=== PATIENT | male | born 1995 | race Caucasian/White ===

== ENCOUNTER 2016-12-05 18:45 | Emergency (ER) | payer OTHER ==
--- NOTE | 2016-12-05 21:02 | ED CLINICAL REPORT ---
Clinical Report - Physicians/Mid Levels [facility] [address] [place] [address] 12/05/2016 18:45 Patient: JESSE LAMB Time Seen: 20:02 Dec 05 2016. Arrived- By private vehicle. Historian- patient. HISTORY OF PRESENT ILLNESS Chief Complaint: BACK PAIN. It is described as being in the area of the lower lumbar spine. Onset was just prior to arrival and it is still present. No bladder dysfunction or sensory loss. Additional history - Reports recent [facility] save for about 14 days. Reports bending over today and having pain. Denies any radiation of pain. Denies any saddle anesthesia. Reports history of similar. Denies taking any medications prior to arrival. Denies any fall or trauma. Denies any abdominal pain, urinary symptoms. Denies any shortness of breath. REVIEW OF SYSTEMS No fever, difficulty with urination, nausea or vomiting. All systems otherwise negative, except as recorded above. PAST HISTORY Problems: Prior Injury, Same Area. Back Pain. Hypoglycemia. Additional Surgeries: no known surgeries. Medications: TraZODone HCl Oral. Allergies: No Known Drug Allergy. SOCIAL HISTORY Smoker- current status unknown. No alcohol use. ADDITIONAL NOTES The nursing notes have been reviewed. PHYSICAL EXAM Vital Signs: 12/05/2016 19:18 BP: 121/82. HR: 86. RR: 16. O2 saturation: 99%. Temp: 98 F. Pain level now: 06/06. Appearance: Alert. Neck: Normal inspection. Neck nontender. CVS: Heart sounds normal. Respiratory: Breath sounds normal. Abdomen: No visible injury. Bowel sounds normal. No distention, mass present, organomegaly or femoral pulse deficit. Back: (spasms on b/l lumbar region no midline tenderness.). Neuro: Oriented X 3. Mood/affect normal. Straight leg raising: negative on the right. PROGRESS AND PROCEDURES Course of Care: There are no risks for spinal epidural abscess or hematoma as patient is without any risk factors such as IVDA or evidence of active infection, no midline tenderness to percussion. Hence I do not feel emergent imaging with an MRI is indicated. However I did discuss with the patient that if these symptoms develop, or if the pain does not resolve an MRI may need to be done outpatient, or in the ED if symptoms worsen acutely or new onset of the above mentioned symptoms develop. 12/05/2016 20:25 BP: 122/70. HR: 68. RR: 16. O2 saturation: 100%. Patient is stable. Physical exam findings are improved. Symptoms better. Patient/family counseled. Disposition: Discharged. Condition: good. CLINICAL IMPRESSION Acute myofascial strain Sprain of the lumbar spine. INSTRUCTIONS Apply ice. No lifting greater than 5 lbs (5 days). Do not work tomorrow. Prescription Medications: Hydrocodone/APAP 5mg / 325mg: take 1 orally every 6 hours as needed for pain. Dispense ten (10). No refill. Robaxin 750 mg: take 1 orally every 8 hours for 3 days. Dispense ten (10). No refill. Substitution is permissible. Follow-up: Follow up with your doctor in three days. (Electronically signed by Deneen Levy P.A.-C 12/05/2016 23:08)
--- NOTE | 2016-12-05 21:02 | ED ORDER SUMMARY ---
..... Patient: JESSE LAMB LW OrderSheet [facility] VisitID: [id number] [address] [place] [address] 21y, M Registration Date/Time: 12/05/2016 ORDER SHEET Weight: 90.2 kg (stated) Allergies: No Known Drug Allergy GENERAL ORDERS: MEDICATION ORDERS: Valium PO 5 mg (HIGH ALERT MEDICATION, NOW) (19:42 12/05/2016 EKoroleva P.A.-C) (Ack 19:44 EInderbitzen R.N.) (19:48 EInderbitzen R.N.) Hydrocodone-APAP PO 5/325 mg (NOW, HIGH ALERT MEDICATION) (19:42 12/05/2016 EKoroleva P.A.-C) (Ack 19:44 EInderbitzen R.N.) (19:48 EInderbitzen R.N.) Motrin PO 600 mg (NOW) (19:42 12/05/2016 EKoroleva P.A.-C) (Ack 19:44 EInderbitzen R.N.) (19:48 EInderbitzen R.N.) Valium PO 5 mg (HIGH ALERT MEDICATION, NOW) (20:45 12/05/2016 EKoroleva P.A.-C) (Ack 20:53 EInderbitzen R.N.) (Cancelled: Patient [id number] EInderbitzen R.N.) IV FLUIDS: ORDER SHEET NOTES: [Electronically signed by Balbina Warner R.N. (21:12 12/05/2016)] [Electronically signed by Deneen LevyAEthan-C (23:07 12/05/2016)] [Electronically locked/signed by Balbina Warner R.N. (21:12 12/05/2016)]
--- NOTE | 2016-12-05 21:02 | ED ORDER SUMMARY ---
..... Patient: JESSE LAMB LW OrderSheet [facility] VisitID: [id number] [address] [place] [address] 21y, M Registration Date/Time: 12/05/2016 ORDER SHEET Weight: 90.2 kg (stated) Allergies: No Known Drug Allergy GENERAL ORDERS: MEDICATION ORDERS: Valium PO 5 mg (HIGH ALERT MEDICATION, NOW) (19:42 12/05/2016 EKoroleva P.A.-C) (Ack 19:44 EInderbitzen R.N.) (19:48 EInderbitzen R.N.) Hydrocodone-APAP PO 5/325 mg (NOW, HIGH ALERT MEDICATION) (19:42 12/05/2016 EKoroleva P.A.-C) (Ack 19:44 EInderbitzen R.N.) (19:48 EInderbitzen R.N.) Motrin PO 600 mg (NOW) (19:42 12/05/2016 EKoroleva P.A.-C) (Ack 19:44 EInderbitzen R.N.) (19:48 EInderbitzen R.N.) Valium PO 5 mg (HIGH ALERT MEDICATION, NOW) (20:45 12/05/2016 EKoroleva P.A.-C) (Ack 20:53 EInderbitzen R.N.) (Cancelled: Patient [id number] EInderbitzen R.N.) IV FLUIDS: ORDER SHEET NOTES: [Electronically signed by Balbina Warner R.N. (21:12 12/05/2016)] [Electronically signed by Deneen LevyAEthan-C (23:07 12/05/2016)] [Electronically locked/signed by Balbina Warner R.N. (21:12 12/05/2016)]
--- NOTE | 2016-12-05 21:02 | ED CLINICAL REPORT ---
Clinical Report - Physicians/Mid Levels [facility] [address] [place] [address] 12/05/2016 18:45 Patient: JESSE LAMB Time Seen: 20:02 Dec 05 2016. Arrived- By private vehicle. Historian- patient. HISTORY OF PRESENT ILLNESS Chief Complaint: BACK PAIN. It is described as being in the area of the lower lumbar spine. Onset was just prior to arrival and it is still present. No bladder dysfunction or sensory loss. Additional history - Reports recent prison save for about 14 days. Reports bending over today and having pain. Denies any radiation of pain. Denies any saddle anesthesia. Reports history of similar. Denies taking any medications prior to arrival. Denies any fall or trauma. Denies any abdominal pain, urinary symptoms. Denies any shortness of breath. REVIEW OF SYSTEMS No fever, difficulty with urination, nausea or vomiting. All systems otherwise negative, except as recorded above. PAST HISTORY Problems: Prior Injury, Same Area. Back Pain. Hypoglycemia. Additional Surgeries: no known surgeries. Medications: TraZODone HCl Oral. Allergies: No Known Drug Allergy. SOCIAL HISTORY Smoker- current status unknown. No alcohol use. ADDITIONAL NOTES The nursing notes have been reviewed. PHYSICAL EXAM Vital Signs: 12/05/2016 19:18 BP: 121/82. HR: 86. RR: 16. O2 saturation: 99%. Temp: 98 F. Pain level now: 06/06. Appearance: Alert. Neck: Normal inspection. Neck nontender. CVS: Heart sounds normal. Respiratory: Breath sounds normal. Abdomen: No visible injury. Bowel sounds normal. No distention, mass present, organomegaly or femoral pulse deficit. Back: (spasms on b/l lumbar region no midline tenderness.). Neuro: Oriented X 3. Mood/affect normal. Straight leg raising: negative on the right. PROGRESS AND PROCEDURES Course of Care: There are no risks for spinal epidural abscess or hematoma as patient is without any risk factors such as IVDA or evidence of active infection, no midline tenderness to percussion. Hence I do not feel emergent imaging with an MRI is indicated. However I did discuss with the patient that if these symptoms develop, or if the pain does not resolve an MRI may need to be done outpatient, or in the ED if symptoms worsen acutely or new onset of the above mentioned symptoms develop. 12/05/2016 20:25 BP: 122/70. HR: 68. RR: 16. O2 saturation: 100%. Patient is stable. Physical exam findings are improved. Symptoms better. Patient/family counseled. Disposition: Discharged. Condition: good. CLINICAL IMPRESSION Acute myofascial strain Sprain of the lumbar spine. INSTRUCTIONS Apply ice. No lifting greater than 5 lbs (5 days). Do not work tomorrow. Prescription Medications: Hydrocodone/APAP 5mg / 325mg: take 1 orally every 6 hours as needed for pain. Dispense ten (10). No refill. Robaxin 750 mg: take 1 orally every 8 hours for 3 days. Dispense ten (10). No refill. Substitution is permissible. Follow-up: Follow up with your doctor in three days. (Electronically signed by Deneen Levy P.A.-C 12/05/2016 23:08)
--- NOTE | 2016-12-05 21:02 | ED NURSING NOTES ---
Clinical Report - Nurses [facility] [address] [place] [address] 12/05/2016 18:45 Patient: JESSE LAMB TRIAGE Triage time 19:Dec 05 2016. Acuity: LEVEL 4. Chief Complaint: BACK PAIN. 19:18 12/05/16. SEPSIS SCREEN: Sepsis Screen. Negative (no infection suspected/documented). ZAIDA COMA SCORE: [place] Coma Scale: 15- eyes open spontaneously (4); best verbal response- oriented x 4 (5); best motor response- obeys commands (6). --19:21 Balbina Warner R.N. 19:18 12/05/16. BP: 121/82. HR: 86. RR: 16. O2 saturation: 99%. Temp: 98 F. Pain level now: 06/06. --19:21 Balbina Warner R.N. Weight: 90.2 kg stated. Height/Length: 74 inches Per Patient. BMI: 25.5. --19:18 Balbina Warner R.N. Medications TraZODone HCl Oral. --19:20 Balbina Warner R.N. Allergies No Known Drug Allergy. --19:20 Balbina Warner R.N. Medication/allergy information source: the patient. --19:21 Balbina Warner R.N. History Arrived by private vehicle. Historian: patient. Accompanied by family. Onset. (10 days ago). ( Patient states he was in intermediate for the last 10 days and had to sleep on a very thin matress that was on a concrete floor. Has had pain in low thoracic area. No neuro deficits noted. Pain with walking). No history of recent trauma. No numbness, weakness or tingling. 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 (400 mg 2 hours ago). SOCIAL HX: Heavy tobacco smoker (cigarette)- 1 pack per day. No alcohol use or drug use. No infectious disease exposure. ABUSE ASSESSMENT: No report of abuse. NUTRITIONAL RISK ASSESSMENT: The nutritional risk assessment revealed no deficiencies. FUNCTIONAL ASSESSMENT: Functional assessment: no impairments noted. LEARNING NEEDS ASSESSMENT: The learning needs assessment revealed no barriers. SKIN INTEGRITY ASSESSMENT: Skin integrity risk assessment completed. No skin integrity risk identified. --19:21 Balbina Warner R.N. PROBLEMS: Myofascial Strain. Back Pain. --19:20 Balbina Warner R.N. ADDITIONAL SURGERIES: no known surgeries. Interventions ID band on patient. --19:21 Balbina Warner R.N. PHYSICAL ASSESSMENT 19:12/05/16. GENERAL / NEURO / PSYCH: Alert. Oriented X 4. Appears in no acute distress. RESPIRATORY: Breath sounds within normal limits. CVS: Capillary refill less than 2 seconds. EXTREMITIES: Sensation intact in extremities. ROM of extremities within normal limits. BACK: Normal inspection of the neck and back. Soft tissue tenderness. --19:22 Balbina Warner R.N. NURSING PROGRESS NOTES 19:12/05/16. The initial plan of care for this patient includes an assessment with efforts to address the presence of pain; impairment of the musculoskeletal system. This plan of care was discussed with the patient. Reassurance given. Two patient identifiers checked. Bed placed in lowest position. Brakes of bed on. Patient ready for evaluation. --19:22 Balbina Warner R.N. 19:46 12/05/2016 Valium (Diazepam) PO Tablets 5 mg given. Allergies verified, confirmed 5 rights and sedative warning given to the patient. --19:48 Balbina Warner R.N. 19:46 12/05/2016 Hydrocodone-APAP (Hydrocodone-Acetaminophen) PO 5/325 mg Tablets 1 tab given. Allergies verified, confirmed 5 rights and sedative warning given to the patient. --19:48 Balbina Warner R.N. 19:46 12/05/2016 Motrin PO Tablets 600 mg given. Allergies verified and confirmed 5 rights. --19:48 Balbina Warner R.N. 20:25 12/05/16. Reassessment after medication administered. He is calm and resting quietly and has had no adverse reaction. Overall patient status is improved- he states feels better. --20:25 Balbina Warner R.N. 20:25 12/05/16. BP: 122/70. HR: 68. RR: 16. O2 saturation: 100%. Pain level now 03/06. --20:25 Balbina Warner R.N. 21:01 12/05/16. ( Patient was able to walk with a walker.). --21:01 Balbina Warner R.N. DISPOSITION / DISCHARGE 21:12 12/05/16. Condition at departure: improved and stable. The goals identified in the patient's plan of care were met. No learning barriers present. Reviewed medication(s) side effects, precautions, dosing and course information. Prescription(s) given to the patient. Patient verbalized understanding. Written instructions provided in Portuguese. The patient was discharged home and accompanied by spouse. He left the Emergency Department in a wheelchair and via private vehicle. Spouse driving. --21:12 Balbina Warner R.N. 20:25 12/05/16. BP: 122/70. HR: 68. RR: 16. O2 saturation: 100%. Pain level now 03/06. 19:18 12/05/16. BP: 121/82. HR: 86. RR: 16. O2 saturation: 99%. Temp: 98 F. Pain level now: 06/06. --21:12 Balbina Warner R.N. Departure time: 21:12 Dec 05 2016. --21:12 Balbina Warner R.N. Locked/Released at 12/05/2016 21:12 by Balbina Warner R.N.
--- NOTE | 2016-12-05 23:08 | ED DISCHARGE INSTRUCTIONS ---
Patient: JESSE LAMB LW General Instructions [facility] VisitID: [id number] [address] [place] [address] 21y, M Registration Date/Time: 12/05/2016 Acute myofascial strain Sprain of the lumbar spine. INSTRUCTIONS Apply ice. No lifting greater than 5 lbs (5 days). Do not work tomorrow. Prescription Medications: Hydrocodone/APAP 5mg / 325mg: take 1 orally every 6 hours as needed for pain. Dispense ten (10). No refill. Robaxin 750 mg: take 1 orally every 8 hours for 3 days. Dispense ten (10). No refill. Substitution is permissible. Follow-up: Follow up with your doctor in three days. ADDITIONAL INFORMATION Muscle Strain,Extremity A MUSCLE STRAIN is a stretching and tearing of muscle fibers. This causes pain, especially with motion of that muscle. There may also be some swelling and bruising. Home Care: 1) Keep the injured area raised to reduce pain and swelling. This is especially important during the first 48 hours. 2) Make an ice pack (ice cubes in a plastic bag, wrapped in a towel) and apply for 20 minutes every 1-2 hours the first day. You should continue with ice packs 3-4 times a day for the second and third days. Unless otherwise instructed, on the fourth day you may begin hot soaks or hot packs (small towel soaked in hot water) 3-4 times a day while you gently exercise the involved area. 3) You may use acetaminophen (Tylenol) or ibuprofen (Motrin, Advil) to control pain, unless another medicine was prescribed. [ NOTE : If you have chronic liver or kidney disease or ever had a stomach ulcer or GI bleeding, talk with your doctor before using these medicines.] 4) For LEG STRAINS: If CRUTCHES have been recommended, do not bear full weight on the injured leg until you can do so without pain. You may return to sports when you are able to hop and run on the injured leg without pain. Follow Up with your doctor or this facility if you are not improving within the next five days. Get Prompt Medical Attention if any of the following occur: -- Fingers or toes become swollen, cold, blue, numb or tingly -- Pain or swelling increases Back Pain [Acute Or Chronic] Back pain is usually caused by an injury to the muscles or ligaments of the spine. Sometimes the disks that separate each bone in the spine may bulge and cause pain by pressing on a nearby nerve. Back pain may also appear after a sudden twisting/bending force (such as in a car accident), after a simple awkward movement, or lifting something heavy with poor body positioning. In either case, muscle spasm is often present and adds to the pain. Acute back pain usually gets better in one to two weeks. Back pain related to disk disease, arthritis in the spinal joints or spinal stenosis (narrowing of the spinal canal) can become chronic and last for months or years. Unless you had a physical injury (for example, a car accident or fall) X-rays are usually not ordered for the initial evaluation of back pain. If pain continues and does not respond to medical treatment, x-rays and other tests may be performed at a later time. Home Care: You may need to stay in bed the first few days. But, as soon as possible, begin sitting or walking to avoid problems with prolonged bed rest (muscle weakness, worsening back stiffness and pain, blood clots in the legs). When in bed, try to find a position of comfort. A firm mattress is best. Try lying flat on your back with pillows under your knees. You can also try lying on your side with your knees bent up towards your chest and a pillow between your knees. Avoid prolonged sitting. This puts more stress on the lower back than standing or walking. During the first two days after injury, apply an ICE PACK to the painful area for 20 minutes every 2-4 hours. This will reduce swelling and pain. HEAT (hot shower, hot bath or heating pad) works well for muscle spasm. You can start with ice, then switch to heat after two days. Some patients feel best alternating ice and heat treatments. Use the one method that feels the best to you. You may use acetaminophen (Tylenol) or ibuprofen (Motrin, Advil) to control pain, unless another pain medicine was prescribed. [NOTE: If you have chronic liver or kidney disease or ever had a stomach ulcer or GI bleeding, talk with your doctor before using these medicines.] Be aware of safe lifting methods and do not lift anything over 15 pounds until all the pain is gone. Follow Up with your doctor or this facility if your symptoms do not start to improve after one week. Physical therapy may be needed. [NOTE: If X-rays were taken, they will be reviewed by a radiologist. You will be notified of any new findings that may affect your care.] Get Prompt Medical Attention if any of the following occur: Pain becomes worse or spreads to your legs Weakness or numbness in one or both legs Loss of bowel or bladder control Numbness in the groin or genital area Back Pain [Acute Or Chronic] Back pain is usually caused by an injury to the muscles or ligaments of the spine. Sometimes the disks that separate each bone in the spine may bulge and cause pain by pressing on a nearby nerve. Back pain may also appear after a sudden twisting/bending force (such as in a car accident), after a simple awkward movement, or lifting something heavy with poor body positioning. In either case, muscle spasm is often present and adds to the pain. Acute back pain usually gets better in one to two weeks. Back pain related to disk disease, arthritis in the spinal joints or spinal stenosis (narrowing of the spinal canal) can become chronic and last for months or years. Unless you had a physical injury (for example, a car accident or fall) X-rays are usually not ordered for the initial evaluation of back pain. If pain continues and does not respond to medical treatment, x-rays and other tests may be performed at a later time. Home Care: You may need to stay in bed the first few days. But, as soon as possible, begin sitting or walking to avoid problems with prolonged bed rest (muscle weakness, worsening back stiffness and pain, blood clots in the legs). When in bed, try to find a position of comfort. A firm mattress is best. Try lying flat on your back with pillows under your knees. You can also try lying on your side with your knees bent up towards your chest and a pillow between your knees. Avoid prolonged sitting. This puts more stress on the lower back than standing or walking. During the first two days after injury, apply an ICE PACK to the painful area for 20 minutes every 2-4 hours. This will reduce swelling and pain. HEAT (hot shower, hot bath or heating pad) works well for muscle spasm. You can start with ice, then switch to heat after two days. Some patients feel best alternating ice and heat treatments. Use the one method that feels the best to you. You may use acetaminophen (Tylenol) or ibuprofen (Motrin, Advil) to control pain, unless another pain medicine was prescribed. [NOTE: If you have chronic liver or kidney disease or ever had a stomach ulcer or GI bleeding, talk with your doctor before using these medicines.] Be aware of safe lifting methods and do not lift anything over 15 pounds until all the pain is gone. Follow Up with your doctor or this facility if your symptoms do not start to improve after one week. Physical therapy may be needed. [NOTE: If X-rays were taken, they will be reviewed by a radiologist. You will be notified of any new findings that may affect your care.] Get Prompt Medical Attention if any of the following occur: Pain becomes worse or spreads to your legs Weakness or numbness in one or both legs Loss of bowel or bladder control Numbness in the groin or genital area Hydrocodone Bitartrate, Acetaminophen Oral tablet What is this medicine? ACETAMINOPHEN; HYDROCODONE (a set a MARTHA joaquin fen; justine droe KOE done) is a pain reliever. It is used to treat mild to moderate pain. How should I use this medicine? Take this medicine by mouth. Swallow it with a full glass of water. Follow the directions on the prescription label. If the medicine upsets your stomach, take the medicine with food or milk. Do not take more than you are told to take. Talk to your life science teacher regarding the use of this medicine in children. This medicine is not approved for use in children. What side effects may I notice from receiving this medicine? Side effects that you should report to your doctor or health child care lead teacher as soon as possible: allergic reactions like skin rash, itching or hives, swelling of the face, lips, or tongue breathing problems confusion feeling faint or lightheaded, falls stomach pain yellowing of the eyes or skin Side effects that usually do not require medical attention (report to your doctor or health child care lead teacher if they continue or are bothersome): nausea, vomiting stomach upset What may interact with this medicine? alcohol antihistamines isoniazid medicines for depression, anxiety, or psychotic disturbances medicines for sleep muscle relaxants naltrexone narcotic medicines (opiates) for pain phenobarbital ritonavir tramadol What if I miss a dose? If you miss a dose, take it as soon as you can. If it is almost time for your next dose, take only that dose. Do not take double or extra doses. Where should I keep my medicine? Keep out of the reach of children. This medicine can be abused. Keep your medicine in a safe place to protect it from theft. Do not share this medicine with anyone. Selling or giving away this medicine is dangerous and against the law. Store at room temperature between 15 and 30 degrees C (59 and 86 degrees F). Protect from light. Keep container tightly closed. Throw away any unused medicine after the expiration date. Discard unused medicine and used packaging carefully. Pets and children can be harmed if they find used or lost packages. What should I tell my health care provider before I take this medicine? They need to know if you have any of these conditions: brain tumor Crohn's disease, inflammatory bowel disease, or ulcerative colitis drink more than 3 alcohol-containing drinks per day drug abuse or addiction head injury heart or circulation problems kidney disease or problems going to the bathroom liver disease lung disease, asthma, or breathing problems an unusual or allergic reaction to acetaminophen, hydrocodone, other opioid analgesics, other medicines, foods, dyes, or preservatives or trying to get breast-feeding What should I watch for while using this medicine? Tell your doctor or health child care lead teacher if your pain does not go away, if it gets worse, or if you have new or a different type of pain. You may develop tolerance to the medicine. Tolerance means that you will need a higher dose of the medicine for pain relief. Tolerance is normal and is expected if you take the medicine for a long time. Do not suddenly stop taking your medicine because you may develop a severe reaction. Your body becomes used to the medicine. This does NOT mean you are addicted. Addiction is a behavior related to getting and using a drug for a non-medical reason. If you have pain, you have a medical reason to take pain medicine. Your doctor will tell you how much medicine to take. If your doctor wants you to stop the medicine, the dose will be slowly lowered over time to avoid any side effects. You may get drowsy or dizzy when you first start taking the medicine or change doses. Do not drive, use machinery, or do anything that may be dangerous until you know how the medicine affects you. Stand or sit up slowly. There are different types of narcotic medicines (opiates) for pain. If you take more than one type at the same time, you may have more side effects. Give your health care provider a list of all medicines you use. Your doctor will tell you how much medicine to take. Do not take more medicine than directed. Call emergency for help if you have problems breathing. The medicine will cause constipation. Try to have a bowel movement at least every 2 to 3 days. If you do not have a bowel movement for 3 days, call your doctor or health child care lead teacher. Too much acetaminophen can be very dangerous. Do not take Tylenol (acetaminophen) or medicines that contain acetaminophen with this medicine. Many non-prescription medicines contain acetaminophen. Always read the labels carefully. Methocarbamol Oral tablet What is this medicine? METHOCARBAMOL (meth oh VEE ba mole) helps to relieve pain and stiffness in muscles caused by strains, sprains, or other injury to your muscles. How should I use this medicine? Take this medicine by mouth with a full glass of water. Follow the directions on the prescription label. Take your medicine at regular intervals. Do not take your medicine more often than directed. Talk to your life science teacher regarding the use of this medicine in children. Special care may be needed. What side effects may I notice from receiving this medicine? Side effects that you should report to your doctor or health child care lead teacher as soon as possible: allergic reactions like skin rash, itching or hives, swelling of the face, lips, or tongue blurred vision or changes in vision confusion fainting spells fever nausea or vomiting seizures Side effects that usually do not require medical attention (report to your doctor or health child care lead teacher if they continue or are bothersome): dizziness drowsiness headache metallic taste What may interact with this medicine? alcohol or medicines that contain alcohol cholinesterase inhibitors like neostigmine, ambenonium, and pyridostigmine bromide other medicines that cause drowsiness What if I miss a dose? If you miss a dose, take it as soon as you can. If it is almost time for your next dose, take only the next dose. Do not take double or extra doses. Where should I keep my medicine? Keep out of the reach of children. Store at room temperature between 20 and 25 degrees C (68 and 77 degrees F). Keep container tightly closed. Throw away any unused medicine after the expiration date. What should I tell my health care provider before I take this medicine? They need to know if you have any of these conditions: kidney disease seizures an unusual or allergic reaction to methocarbamol, other medicines, foods, dyes, or preservatives or trying to get breast-feeding What should I watch for while using this medicine? You may get drowsy or dizzy. Do not drive, use machinery, or do anything that needs mental alertness until you know how this medicine affects you. Do not stand or sit up quickly, especially if you are an older patient. This reduces the risk of dizzy or fainting spells. Alcohol may interfere with the effect of this medicine. Avoid alcoholic drinks. You have been given the following additional information: Muscle Strain, Extremity Back Pain (Acute Or Chronic) Back Pain (Acute Or Chronic) Hydrocodone Bitartrate, Acetaminophen Oral tablet Methocarbamol Oral tablet No lifting greater than 5 lbs (5 days). Do not work tomorrow. (Electronically signed by Deneen Levy P.A.-C 12/05/2016 23:08)
--- NOTE | 2016-12-05 23:08 | ED MED RECONCILIATION SUMMARY ---
Patient: JESSE LAMB LW Medication Reconciliation Report [facility] VisitID: [id number] [address] [place] [address] 21y, M Registration Date/Time: 12/05/2016 Weight: 90.2 kg Height/Length: 74 in. BMI: 25.5 ALLERGIES: No Known Drug Allergy The patient's Home Medications are listed below: THE FOLLOWING MEDICATIONS NEED TO BE RECONCILED: TraZODone HCl Oral The source(s) of the original Home Medication information: patient The following Medications were given to the patient in the Emergency Department: Valium [PO] PO 5 mg, administered: 12/05/2016 7:46:00 PM Hydrocodone-APAP [PO] PO 1 tab, administered: 12/05/2016 7:46:00 PM Motrin [PO] PO 600 mg, administered: 12/05/2016 7:46:00 PM The following Medications were prescribed to the patient: Hydrocodone/APAP 5mg / 325mg: take 1 orally every 6 hours as needed for pain. Dispense ten (10). No refill. -- Deneen Levy, P.A.-Sakina Robaxin 750 mg: take 1 orally every 8 hours for 3 days. Dispense ten (10). No refill. Substitution is permissible. -- Deneen Levy, P.A.-C
--- NOTE | 2016-12-05 23:08 | ED MAR SUMMARY ---
..... Medication Administration Record [facility] [address] [place] [address] Patient: JESSE LAMB Visit ID: [id number] 21y, M Weight: 90.2 kg Height/Length: 74 in BMI: 25.5 ALLERGIES: No Known Drug Allergy Given 19:12/05/2016 Balbina Warner REthanNEthan Medication Administered: VALIUM [PO] (DIAZEPAM), Dose: 5 mg Tablets PO. Medication Ordered: Valium PO 5 mg (HIGH ALERT MEDICATION, NOW). Given 19:12/05/2016 Balbina Warner R.NEthan Medication Administered: HYDROCODONE-APAP [PO] (HYDROCODONE-ACETAMINOPHEN), Dose: 1 tab 5/325 mg Tablets PO. Medication Ordered: Hydrocodone-APAP PO 5/325 mg (NOW, HIGH ALERT MEDICATION). Given 19:12/05/2016 Balbina Warner REthanNEthan Medication Administered: MOTRIN [PO], Dose: 600 mg Tablets PO. Medication Ordered: Motrin PO 600 mg (NOW).
--- NOTE | 2016-12-05 23:08 | ED MED RECONCILIATION SUMMARY ---
Patient: JESSE LAMB LW Medication Reconciliation Report [facility] VisitID: [id number] [address] [place] [address] 21y, M Registration Date/Time: 12/05/2016 Weight: 90.2 kg Height/Length: 74 in. BMI: 25.5 ALLERGIES: No Known Drug Allergy The patient's Home Medications are listed below: THE FOLLOWING MEDICATIONS NEED TO BE RECONCILED: TraZODone HCl Oral The source(s) of the original Home Medication information: patient The following Medications were given to the patient in the Emergency Department: Valium [PO] PO 5 mg, administered: 12/05/2016 7:46:00 PM Hydrocodone-APAP [PO] PO 1 tab, administered: 12/05/2016 7:46:00 PM Motrin [PO] PO 600 mg, administered: 12/05/2016 7:46:00 PM The following Medications were prescribed to the patient: Hydrocodone/APAP 5mg / 325mg: take 1 orally every 6 hours as needed for pain. Dispense ten (10). No refill. -- Deneen Levy, P.A.-Sakina Robaxin 750 mg: take 1 orally every 8 hours for 3 days. Dispense ten (10). No refill. Substitution is permissible. -- Deneen Levy, P.A.-C
--- NOTE | 2016-12-05 23:08 | ED MAR SUMMARY ---
..... Medication Administration Record [facility] [address] [place] [address] Patient: JESSE LAMB Visit ID: [id number] 21y, M Weight: 90.2 kg Height/Length: 74 in BMI: 25.5 ALLERGIES: No Known Drug Allergy Given 19:12/05/2016 Balbina Warner REthanNEthan Medication Administered: VALIUM [PO] (DIAZEPAM), Dose: 5 mg Tablets PO. Medication Ordered: Valium PO 5 mg (HIGH ALERT MEDICATION, NOW). Given 19:12/05/2016 Balbina Warner R.NEthan Medication Administered: HYDROCODONE-APAP [PO] (HYDROCODONE-ACETAMINOPHEN), Dose: 1 tab 5/325 mg Tablets PO. Medication Ordered: Hydrocodone-APAP PO 5/325 mg (NOW, HIGH ALERT MEDICATION). Given 19:12/05/2016 Balbina Warner REthanNEthan Medication Administered: MOTRIN [PO], Dose: 600 mg Tablets PO. Medication Ordered: Motrin PO 600 mg (NOW).
== END 2016-12-05 21:12 | disposition home or self-care (01) ==
LOC: ED SRH 18:45
DX: S39.012A Strain of muscle, fascia and tendon of lower back, initial encounter (principal); S33.5XXA Sprain of ligaments of lumbar spine, initial encounter; X50.1XXA Overexertion from prolonged static or awkward postures, initial encounter; Y93.89 Activity, other specified; Y92.9 Unspecified place or not applicable; Y99.9 Unspecified external cause status

== ENCOUNTER 2017-02-02 08:24 | Emergency (ER) | payer OTHER ==
--- NOTE | 2017-02-02 09:45 | DIAGNOSTIC IMAGING REPORT ---
PROCEDURE: XR CHEST 2 VIEW INDICATION: SYNCOPE TECHNIQUE: PA and lateral view. COMPARISON: None. FINDINGS: Lungs are clear. Cardiovascular structures are normal. Bony thorax is unremarkable. IMPRESSION: 1. Negative chest.
--- NOTE | 2017-02-02 11:15 | ED CLINICAL REPORT ---
Clinical Report - Physicians/Mid Levels [facility] [address] [place] [place] [address] 02/02/2017 8:26 [id number] Time Seen: 09:14 Feb 02 2017. Arrived- By private vehicle. Historian- patient. CPT: ER phys charges level 4 (#[id number]). HISTORY OF PRESENT ILLNESS The patient has recovered. Chief Complaint: TWO SYNCOPAL EPISODES. This occurred today. (This started just prior to arrival. Onset. (2 hours ago). ( Pt. woke up feeling fine, shortly after had a dizzy episode, which passed. He walked to the car and had a syncopal episode lasting about 30 seconds, when he woke up on the ground. States his head hurt, so he assumed he hit his head. He had a second witnessed syncopal episode in the car on the way to the ED lasting approx 60 seconds. Pt. states he is dizzy now.). He experienced syncope.). Event was witnessed. At time of event, he was standing and sitting. The patient had preceding symptoms of light-headedness. Experienced repeated episodes. The episode was brief (for 30 seconds). (Dizzy). Similar symptoms previously: Once, as bad. Diagnosis: (syncope , unknown cause.). Recent medical care: Not recently seen/assessed. REVIEW OF SYSTEMS No headache, weakness, chest pain, palpitations or abdominal pain. No vomiting, diarrhea, black stools, bloody stools or fever. No sore throat or throat, difficulty breathing, skin rash or cough. No diabetic symptoms or easy bruising. The patient has had dizziness. 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 has not been taking his trazodone for the past 3 days. All systems otherwise negative, except as recorded above. PAST HISTORY ( Seen at [facility] January 21 this year with bilateral leg numbness and negative MRI. Problem resolved when he "popped" his back.). No history of seizure, stroke or psychiatric problems. Has not had GI bleeding. No history of dysrhythmia. Medications: Trazodone . Allergies: No Known Drug Allergy. SOCIAL HISTORY Heavy tobacco smoker (cigarette)- 1 pack per day. No alcohol use or drug use. ADDITIONAL NOTES The nursing notes have been reviewed. PHYSICAL EXAM Vital Signs: 02/02/2017 08:31 BP: 133/78. HR: 90. RR: 18. O2 saturation: 96%. Temp: 99.3 F. Pain level now: 7/10. Appearance: Alert. No acute distress. Eyes: Pupils equal, round and reactive to light. No nystagmus. Extraocular movements normal. ENT: Normal ENT inspection. TM's normal. Moist mucous membranes. Pharynx normal. Neck: Normal inspection. Neck supple. CVS: Normal heart rate and rhythm. Heart sounds normal. Pulses normal. Respiratory: No respiratory distress. Breath sounds normal. Abdomen: Soft and nontender. Back: Normal inspection. Skin: Skin warm. Normal skin color. No rash. Extremities: Extremities exhibit normal ROM. No lower extremity edema. Neuro: Alert. Oriented X 3. Mood/affect normal. Speech normal. Cranial nerves normal (as tested). No cerebellar findings. No motor deficit. No sensory deficit. Reflexes normal. LABS, X-RAYS, AND EKG EKG: No acute process. No acute ischemia. Normal sinus rhythm. Normal P waves. Normal QRS complex. Left axis deviation. Normal ST and T waves. Prior EKG unavailable. The study has been interpreted contemporaneously. The study has been independently viewed by me. The EKG appears to be a good tracing. Chest X-ray: Normal Chest X-Ray. Laboratory Tests: UA-Culture if indicated: (OFELIA: 02/02/2017 08:50) ( MsgRcvd 02/02/2017 09:09) Final results Test Result Flag Units (Reference) URINE COLOR YELLOW URINE APPEARANCE CLOUDY URINE GLUCOSE NEGATIVE (NEGATIVE) URINE BILIRUBIN NEGATIVE (NEGATIVE) URINE KETONE NEGATIVE (NEGATIVE) URINE SPECIFIC GRAVITY 1.020 (1.010-1.030) URINE PH 7.0 (5.0-8.0) URINE PROTEIN NEGATIVE (NEGATIVE) URINE UROBILINOGEN 0.2 EU/dL (0.2-1.0) URINE NITRITE NEGATIVE (NEGATIVE) URINE BLOOD NEGATIVE (NEGATIVE) URINE LEUK ESTERASE NEGATIVE (NEGATIVE) URINE RBC 1-3 rbc/hpf (0-1) URINE WBC NONE SEEN wbc/hpf (0-1) URINE EPITHELIAL CELLS NONE SEEN EPI/hpf (0-5) URINE BACTERIA MODERATE (2+ TO 3+) (NONE SEEN) URINE COMMENT CULTURE INDICATED URINE CULTURES ARE SET-UP BASED ON THE FOLLOWING CRITERIA:POSITIVE NITRITEPOSITIVE LEUKOCYTE ESTERASEGREATER THAN 10 WHITE BLOOD CELLSMODERATE (2+) OR GREATER BACTERIA CBC w Diff: (OFELIA: 02/02/2017 08:30) ( [facility] 02/02/2017 09:00) Final results Test Result Flag Units (Reference) WHITE BLOOD COUNT 5.7 K/uL (4.5-11.5) RED BLOOD COUNT 5.33 M/uL (4.50-5.90) HEMOGLOBIN 16.0 gm/dL (13.5-17.5) HEMATOCRIT 46.8 % (41.0-53.0) MEAN CELL VOLUME 88 fL (80-100) MEAN CORPUSCULAR HGB 30 pg (26-34) MEAN CORPUSCULAR HGB CONC 34 g/dL (31-37) RED CELL DISTRIBUTION WIDTH 13.0 % (11.6-14.8) PLATELET COUNT 184 K/uL (150-400) NEUTROPHIL % 56.7 % (50-75) LYMPH % 26.4 % (25-40) MONO % 11.2 % (3-14) EOSINOPHIL % 5.0 H % (0-4) BASOPHIL % 0.7 % (0-2) [id number]: (OFELIA: 02/02/2017 08:30) ( [facility] 02/02/2017 09:59) Final results Test Result Flag Units (Reference) D-DIMER QUANTITATIVE < 0.27 L ug/mLFEU (0.27-0.52) The primary value of this quantitative assay relates toits negative predictive value (i.e. exclusion) of pulmonaryembolism/deep vein thrombosis/DIC.Elevated levels of d-dimer may also occur with:, age, cancer, inflammation, liver disease,post-op, infection, hematoma, coronary disease, peripheralarteriopathy, bleeding disorders and thrombolytic treatment.Results should be correlated with other clinical andradiological data.Testing Methodology: Latex Immunoassay Urine Drug Screen: (OFELIA: 02/02/2017 08:50) ( MsgRcvd 02/02/2017 09:13) Final results Test Result Flag Units (Reference) AMPHETAMINE/METHAMPHETAMINE NEGATIVE (NEGATIVE) BARBITURATE NEGATIVE (NEGATIVE) BENZODIAZEPINE NEGATIVE (NEGATIVE) CANNABINOID NEGATIVE (NEGATIVE) COCAINE NEGATIVE (NEGATIVE) ECSTASY NEGATIVE (NEGATIVE) METHADONE NEGATIVE (NEGATIVE) OPIATE NEGATIVE (NEGATIVE) The urine drug screen is a qualitative screening test fordrug overdose and abuse. All screen results should beconsidered as presumptive.Drugs screened for are as follows:BenzodiazepinesCocaineAmphetamines/MetamphetaminesTHC (Tetrahydrocannabinol)OpiatesBarbituratesEcstasyMethadonePositive results are unconfirmed. For confirmation, notifythe lab for the specimen to be sent to the reference lab.All confirmations must be performed by a differentmethodology.The ingestion of natural herbal and plant productscontaining Ephedra/Ephedra metabolites can produce in urineone or more substances capable of cross reacting withamphetamine/methamphetamine immunoassays. These testsprovide a preliminary result only. A more specificalternative chemical method must be used to obtain aconfirmed analytical result. CMP: (OFELIA: 02/02/2017 08:30) ( MsgRcvd 02/02/2017 09:13) Final results Test Result Flag Units (Reference) GLUCOSE 113 H mg/dL (70-110) BUN 14 mg/dL (7-18) CREATININE 1.1 mg/dL (0.6-1.3) Estimated GFR >60 mL/min Estimated GFR- >60 mL/min Note: Persistent reduction over 3 months in eGFR<60 mL/min/1.73 m2 defines CKD. Patients with eGFR values>=60 mL/min/1.73 m2 may also have CKD if evidence ofpersistent proteinuria. Additional information may be foundat www.kidney.org. SODIUM 143 mmol/L (136-145) POTASSIUM 3.7 mmol/L (3.5-5.1) CHLORIDE 106 mmol/L (98-107) CARBON DIOXIDE 26 mmol/L (21-32) CALCIUM 9.4 mg/dL (8.5-10.1) TOTAL PROTEIN 7.6 g/dL (6.4-8.2) ALBUMIN 4.1 g/dL (3.3-5.0) BILIRUBIN, TOTAL 0.4 mg/dL (0.0-1.0) ALKALINE PHOSPHATASE 107 U/L (46-116) AST (SGOT) 18 U/L (15-37) ALT (SGPT) 26 U/L (12-78) . PROGRESS AND PROCEDURES Course of Care: 11:04 02/02/17. Pt states he is dizzy while sitting in the ER. His BP/P IV NS 1 liter Better. Mild pulse jump with orthostatics after IV fluids. Patient/family counseled. Disposition: Discharged. Condition: stable and improved. CLINICAL IMPRESSION Postural syncope .12 lead EKG performed. Moderate volume depletion with hypovolemia. INSTRUCTIONS Return to work tomorrow (Drink plenty of fluids at work.). Do not work today, for one day until better. Drink plenty of fluids today until better. Warnings: Further evaluation is necessary. GENERAL WARNINGS: Return or contact your physician immediately if your condition worsens or changes unexpectedly, if not improving as expected, or if other problems arise. Follow-up: Follow up with your doctor in one week. Call for an appointment. Understanding of the discharge instructions verbalized by patient and family. (Electronically signed by Herbert Barrera MD 02/02/2017 21:39)
--- NOTE | 2017-02-02 11:16 | ED NURSING NOTES ---
Clinical Report - Nurses Merged With [facility] [place] [address] 02/02/2017 8:26 Patient: JESSE LAMB TRIAGE Triage time 08:31. Acuity: LEVEL 3. Chief Complaint: DIZZINESS and NEAR-SYNCOPE. --08:36 April Adamson R.N. 08:31 02/02/17. BP: 133/78. HR: 90. RR: 18. O2 saturation: 96%. Temp: 99.3 F. Pain level now: 03/06. --08:36 April Adamson R.N. Weight: 90.7 kg stated. Height/Length: 75 inches Per Patient. BMI: 25. --08:35 April Adamson R.N. Medications Trazodone . --08:35 April Adamson R.N. Allergies No Known Drug Allergy. --08:35 April Adamson R.N. History Arrived by private vehicle. Historian: patient. Accompanied by family. This started just prior to arrival. Onset. (2 hours ago). ( Pt. woke up feeling fine, shortly after had a dizzy episode, which passed. He walked to the car and had a syncopal episode lasting about 30 seconds, when he woke up on the ground. States his head hurt, so he assumed he hit his head. He had a second witnessed syncopal episode in the car on the way to the ED lasting approx 60 seconds. Pt. states he is dizzy now.). He experienced syncope. PAST MEDICAL HX: Immunizations: up-to-date. SOCIAL HX: Current every day heavy tobacco smoker (cigarette)- 1 pack per day. No alcohol use or drug use. --08:36 April Adamson R.N. ADDITIONAL SURGERIES: None. --08:36 April Adamson R.N. Interventions ID band on patient. --08:36 April Adamson R.N. PHYSICAL ASSESSMENT ( pt reports headache r/t fall. No trauma noted.). GENERAL / NEURO / PSYCH: Oriented X 4. Appears in no acute distress. Alert. Speech within normal limits. HEENT: No facial asymmetry noted. Pupils equal, round and reactive to light. RESPIRATORY: Breath sounds within normal limits. Respirations not labored. CVS: Normal sinus rhythm noted. Capillary refill less than 2 seconds. GI / : Abdomen soft and nontender. SKIN: Skin is warm and dry. --09:06 April Adamson R.N. NURSING PROGRESS NOTES 08:37 02/02/2017 Site #1 started via IV in the right antecubital space with an 20g angiocath; one attempt. Blood drawn: rainbow set. Saline lock flushed with 10 mL saline. --08:37 April Adamson R.N. microfilm mounter, pulse oximeter and NIBP monitor placed on patient. Patient gowned. Head of bed elevated. Reassurance given. Call light placed in reach. Side rails up x 2. Bed placed in lowest position. --08:41 April Adamson R.N. 08:46 02/02/2017 Started bag #1 1000 mL IV Fluids IV NS (Saline); at 1000 mL/hr over 60 minute(s) via site #1. Allergies verified and confirmed 5 rights. IV patency established. IV site checked: no pain, redness, or swelling. IV flushed thoroughly pre- and post-medication administration. --08:46 Maged Cutler R.N. EKG time: (847). EKG was ordered, performed by a tech and shown to the ED physician. --08:[address] Patient ID band checked for patient name and birthdate: patient confirmed urine collected with return of lili-colored clear urine; sample sent to lab. Specimen labeled in the presence of the patient. --08:55 April Adamson R.N. 09:05 02/02/17. BP: 126/77. HR: 76. O2 saturation: 100%. --09:05 April Adamson R.N. 09:52 02/02/17. BP: 112/49 (regular adult cuff) taken on the left arm, while lying. HR: 64. --09:[address] 09:54 02/02/17. BP: 113/69 (regular adult cuff) taken on the left arm, while sitting. HR: 63. --10:[address] 10:03 02/02/17. BP: 116/74 (regular adult cuff) taken on the left arm, while standing. HR: 79. --10:[address] 10:58 02/02/17. BP: 106/67. HR: 68. RR: 22. O2 saturation: 98%. Temp: 98.1 F. --10:59 April Adamson R.N. ( states he is not quite as dizzy as he was on arrival. call light in reach. awaiting reeval). --10:59 Apirl Adamson R.N. 11:33 02/02/2017 IV Fluids IV NS Discontinued: bag #1 infused upon discharge. Total amount infused: 1000 mL. IV patency established. IV site checked: no pain, redness, or swelling. IV flushed thoroughly. --11:33 April Adamson R.N. DISPOSITION / DISCHARGE 11:32 02/02/2017 Site #1 removed upon discharge. Bandaid applied. --11:32 April Adamson R.N. Departure time: 1131. Condition at departure: improved and stable. No learning barriers present. Discharge instructions provided and reviewed with the patient and spouse. Reviewed warnings (stay hydrated in warm weather). Patient and spouse verbalized understanding. Written instructions provided in Bengali. The patient was discharged by the physician. He was discharged home and accompanied by spouse. He left the Emergency Department ambulatory and via private vehicle. Spouse driving. --11:32 April Adamson R.N. 11:31 02/02/17. BP: 106/67. HR: 68. RR: 22. O2 saturation: 98%. Temp: 98.1 F. Pain level now: 01/04. --11:32 April Adamson R.N. Locked/Released at 02/02/2017 16:08 by April Adamson R.N.
--- NOTE | 2017-02-02 11:16 | ED ORDER SUMMARY ---
..... Patient: JESSE LAMB LW OrderSheet [facility] VisitID: [id number] [place] [address] 21y, M Registration Date/Time: 02/02/2017 ORDER SHEET Weight: 90.7 kg (stated) Allergies: No Known Drug Allergy GENERAL ORDERS: Office Clerk Assistant (Continuous) (LOC x 2) (08:47 02/02/2017 JRhesham R.N. verbal order read back to Patricia HORN) (8:58 SStone R.N.) CMP Urgent (08:47 02/02/2017 JRhesham R.N. verbal order read back to Patricia HORN) (Ack 8:49 ROLAoeindiana) (8:58 SStone R.N.) CBC w Diff Urgent (08:47 02/02/2017 Alex R.N. verbal order read back to Patricia HORN) (Ack 8:49 ROLAoeindiana) (8:58 SStone R.N.) UA-Culture if indicated Urgent (08:47 02/02/2017 Alex R.N. verbal order read back to Patricia HORN) (Ack 8:49 ROLAoeoniner) (8:58 SStone R.N.) EKG - ER Stat (08:47 02/02/2017 Alex R.N. verbal order read back to Patricia HORN) (8:48 OHernandez) Pulse oximeter (08:47 02/02/2017 Alex R.N. verbal order read back to Patricia HORN) (8:58 SStone R.N.) Urine Drug Screen Urgent (08:48 02/02/2017 omanelli R.N. verbal order read back to Patricia HORN) (Ack 8:49 ROLAoeindiana) (8:58 SStone R.N.) Chest 2V Urgent (09:17 02/02/2017 Nguyen HORN) (Ack 9:19 ROLAoeindiana) (9:31 KHoerner) - (Orthostatic BP/P) (09:18 02/02/2017 Nguyen HORN) (10:21 SStone R.N.) Old Records (January 21 ER visit [facility] for syncope.) (09:19 02/02/2017 Nguyen HORN) (Ack 9:30 David) (9:30 David) D-Dimer Urgent (09:47 02/02/2017 Nguyen HORN) (Ack 9:48 David) (10:21 Beena Moreland.Harpreet) MEDICATION ORDERS: IV FLUIDS: IV NS : initial bolus none -, then 1000 mL/hr for X1 (NOW) (08:43 02/02/2017 Alex Moreland.NEthan verbal order read back to Patricia HRON) (8:46 Alex R.NEthan) ORDER SHEET NOTES: [Electronically signed by April Adamson R.N. (16:08 02/02/2017)] [Electronically signed by Herbert Barrera MD (21:39 02/02/2017)] [Electronically locked/signed by April Adamson R.N. (16:08 02/02/2017)]
--- NOTE | 2017-02-02 11:16 | ED ORDER SUMMARY ---
..... Patient: JESSE LAMB LW OrderSheet [facility] VisitID: [id number] [place] [address] 21y, M Registration Date/Time: 02/02/2017 ORDER SHEET Weight: 90.7 kg (stated) Allergies: No Known Drug Allergy GENERAL ORDERS: Salvage Clerk (Continuous) (LOC x 2) (08:47 02/02/2017 JRhesham R.N. verbal order read back to Patricia HORN) (8:58 SStone R.N.) CMP Urgent (08:47 02/02/2017 JRhesham R.N. verbal order read back to Patricia HORN) (Ack 8:49 ROLAoeindiana) (8:58 SStone R.N.) CBC w Diff Urgent (08:47 02/02/2017 Alex R.N. verbal order read back to Patricia HORN) (Ack 8:49 ROLAoeindiana) (8:58 SStone R.N.) UA-Culture if indicated Urgent (08:47 02/02/2017 Alex R.N. verbal order read back to Patricia HORN) (Ack 8:49 ROLAoeoniner) (8:58 SStone R.N.) EKG - ER Stat (08:47 02/02/2017 Alex R.N. verbal order read back to Patricia HORN) (8:48 OHernandez) Pulse oximeter (08:47 02/02/2017 Alex R.N. verbal order read back to Patricia HORN) (8:58 SStone R.N.) Urine Drug Screen Urgent (08:48 02/02/2017 omanelli R.N. verbal order read back to Patricia HORN) (Ack 8:49 ROLAoeindiana) (8:58 SStone R.N.) Chest 2V Urgent (09:17 02/02/2017 Nguyen HORN) (Ack 9:19 ROLAoeindiana) (9:31 KHoerner) - (Orthostatic BP/P) (09:18 02/02/2017 Nguyen HORN) (10:21 SStone R.N.) Old Records (January 21 ER visit [place] for syncope.) (09:19 02/02/2017 Nguyen HORN) (Ack 9:30 David) (9:30 David) D-Dimer Urgent (09:47 02/02/2017 Nguyen HORN) (Ack 9:48 David) (10:21 Beena Moreland.Harpreet) MEDICATION ORDERS: IV FLUIDS: IV NS : initial bolus none -, then 1000 mL/hr for X1 (NOW) (08:43 02/02/2017 Alex Moreland.NEthan verbal order read back to Patricia HORN) (8:46 Alex R.NEthan) ORDER SHEET NOTES: [Electronically signed by April Adamson R.N. (16:08 02/02/2017)] [Electronically signed by Herbert Barrera MD (21:39 02/02/2017)] [Electronically locked/signed by April Adamson R.N. (16:08 02/02/2017)]
--- NOTE | 2017-02-02 21:40 | ED MAR SUMMARY ---
..... Medication Administration Record [facility] [address] [place] [address] Patient: JESSE LAMB Visit ID: [id number] 21y, M Weight: 90.7 kg Height/Length: 75 in BMI: 25 ALLERGIES: No Known Drug Allergy Start 08:46 02/02/2017 Maged Cutler RDipika, Stop 11:33 02/02/2017 April Adamson R.N. Medication Administered: IV NS (SALINE), Dose: IV Fluids over 60 minute(s), Rate: 1000 mL/hr, Dispensed: 1000 mL bag, Site: #1 right AC. Medication Ordered: IV NS : initial bolus none -, then 1000 mL/hr for X1 (NOW).
--- NOTE | 2017-02-02 21:40 | ED MED RECONCILIATION SUMMARY ---
Patient: SAADIA LAMBTIS LW Medication Reconciliation Report [facility] VisitID: [id number] [address] [place] [address] 21y, M Registration Date/Time: 02/02/2017 Weight: 90.7 kg Height/Length: 75 in. BMI: 25.0 ALLERGIES: No Known Drug Allergy The patient's Home Medications are listed below: THE FOLLOWING MEDICATIONS NEED TO BE RECONCILED: Trazodone The source(s) of the original Home Medication information: Not obtained. The following Medications were given to the patient in the Emergency Department: IV NS IV Fluids bolus 0, then 1000 mL/hr, administered: 02/02/2017 8:46:00 AM The following Medications were prescribed to the patient: None.
--- NOTE | 2017-02-02 21:40 | ED MED RECONCILIATION SUMMARY ---
Patient: SAADIA LAMBTIS LW Medication Reconciliation Report [facility] VisitID: [id number] [address] [place] [address] 21y, M Registration Date/Time: 02/02/2017 Weight: 90.7 kg Height/Length: 75 in. BMI: 25.0 ALLERGIES: No Known Drug Allergy The patient's Home Medications are listed below: THE FOLLOWING MEDICATIONS NEED TO BE RECONCILED: Trazodone The source(s) of the original Home Medication information: Not obtained. The following Medications were given to the patient in the Emergency Department: IV NS IV Fluids bolus 0, then 1000 mL/hr, administered: 02/02/2017 8:46:00 AM The following Medications were prescribed to the patient: None.
--- NOTE | 2017-02-02 21:40 | ED MAR SUMMARY ---
..... Medication Administration Record [facility] [address] [place] [address] Patient: JESSE LAMB Visit ID: [id number] 21y, M Weight: 90.7 kg Height/Length: 75 in BMI: 25 ALLERGIES: No Known Drug Allergy Start 08:46 02/02/2017 Maged Cutler RDipika, Stop 11:33 02/02/2017 April Adamson R.N. Medication Administered: IV NS (SALINE), Dose: IV Fluids over 60 minute(s), Rate: 1000 mL/hr, Dispensed: 1000 mL bag, Site: #1 right AC. Medication Ordered: IV NS : initial bolus none -, then 1000 mL/hr for X1 (NOW).
--- NOTE | 2017-02-02 21:40 | ED DISCHARGE INSTRUCTIONS ---
Patient: JESSE LAMB LW General Instructions [facility] VisitID: [id number] [place] [address] 21y, M Registration Date/Time: 02/02/2017 Postural syncope .12 lead EKG performed. Moderate volume depletion with hypovolemia. INSTRUCTIONS Return to work tomorrow (Drink plenty of fluids at work.). Do not work today, for one day until better. Drink plenty of fluids today until better. Warnings: Further evaluation is necessary. GENERAL WARNINGS: Return or contact your physician immediately if your condition worsens or changes unexpectedly, if not improving as expected, or if other problems arise. Follow-up: Follow up with your doctor in one week. Call for an appointment. Understanding of the discharge instructions verbalized by patient and family. ADDITIONAL INFORMATION Dehydration (Adult) Dehydration occurs when your body loses too much fluid. This may be the result of vomiting a lot or from diarrhea,sweating a lot, or a high fever. It may also happen if you dont drink enough fluid when youre sick. Misuse of diuretics (water pills) can also be a cause. Symptoms include thirst and feeling dizzy, weak, fatigued, or very drowsy. The diet described below is usually enough to treat most cases. Sometimes you may needmedicine. Home Care Follow these guidelines for home care: Drink at least 12 8-ounce glasses of fluid every day to overcome the dehydration. Fluid may include water; orange juice; lemonade; apple, grape, and cranberry juice; clear fruit drinks; electrolyte replacement and sports drinks; and teas and coffee without caffeine. If you have been diagnosed with a kidney disease, ask your doctor how much and what types of fluids you should drink to prevent dehydration. If you have kidney disease, drinking too much fluid can cause it build up in the your body and be dangerous to your health. If you have fever, muscle aching, or headache from a viral syndrome, you may useacetaminophen or ibuprofen, unless another medicine was prescribed for this.If you have chronic liver or kidney disease or ever had a stomach ulcer or GI bleeding, talk with your doctor before using these medicines. Don't take aspirin if you are younger than 18 and are ill with a fever.Aspirin raises the chance forsevere liver injury. Follow-up care Follow up with your health care provider if you don't get better in the next 24 to 48 hours. When to seek medical care Get prompt medical attention if any of theseoccur: Continued vomiting (cant keep liquids down) Frequent diarrhea (more than 5 times a day); blood (red or black color) or mucus in diarrhea Blood in vomit or stool Swollen abdomen or increasing abdominal pain Weakness, dizziness, or fainting Unusually drowsy or confused Reduced urine output or extreme thirst Fever of 100.4 F (38 C) oral or higher that does not get better with fever medication You have been given the following additional information: Dehydration (Adult) Return to work tomorrow (Drink plenty of fluids at work.). Do not work today, for one day until better. (Electronically signed by Herbert Brarera MD 02/02/2017 21:39)
== END 2017-02-02 11:35 | disposition home or self-care (01) ==
LOC: ED SRH 08:24
DX: R55 Syncope and collapse (principal); E86.1 Hypovolemia; F17.210 Nicotine dependence, cigarettes, uncomplicated
CPT/HCPCS: 90004; 90100; 90469; 91556; 92760; 92761; 92762; 92763; 92764; 92765; 92766; 92767; 95059